=== PATIENT | female | born 1945 | race Caucasian/White ===

== ENCOUNTER 2021-03-14 16:52 | Emergency (ER) | payer MEDICARE, MEDICAID ==
[~2021-03-14 16:52] MED LIST: ACET-2267 PO; ACHD5005 PO; ALBU18HF2 INH; ALPR0.5T7 PO; CEFD300C3 PO; MTP100TCR PO; MULT-1060 PO; OMEP40CA6 PO
--- OUTSIDE RECORDS SUMMARY | 2021-03-14 16:57 | XMS REPORT | Clinical Summary ---
Author Author [facility] Organization [facility] Address Unknown Phone Unavailable Care Team Providers Care [employer]oc[employer] Designer Name Role Phone PCP Unavailable Source Comments [facility] ([facility]) documents do not appear in the [facility] Allergies Not on File Medications Please verify current medications with patient. Not on file Active Problems Not on file Social History Date Tobacco Use Types Packs/Day Years Used Never Assessed Sex Assigned at Date Recorded Not on file Last Filed Vital Signs Not on file Plan of Treatment Health Maintenance Due Date Last Done Comments CT Colonography 1945 Colon cancer: DNA-based 1945 stool test (Cologuard) Sigmoidoscopy 1945 gFOBT or FIT 1945 COVID-19 Vaccine (1) 1959 Colonoscopy 1997 Colorectal Cancer 1997 Screening Mammogram 1997 DXA Scan 2012 Pneumococcal Vaccine: 65+ 2012 Years (1 of 1 - PPSV23) Influenza Vaccine (#1) 2021 HPV Vaccine Aged Out No longer eligible based on patient's age to complete this topic Results Not on filefrom Last 3 Months
--- NOTE | 2021-03-14 17:25 | Diagnostic Imaging Report ---
INDICATION: Cough COMPARISON: 12/18/2020 FINDINGS: Single view of the chest demonstrates clear lungs bilaterally. The heart is prominent but stable. There is no pneumothorax. The osseous structures are normal. IMPRESSION: Negative chest. Dictated by: Dictated on workstation # [id number]
--- NOTE | 2021-03-14 17:33 | ED Cough/URI ---
General Chief Complaint: Respiratory Problems Stated Complaint: COUGH Source: patient Exam Limitations: no limitations History of Present Illness Date Seen by Provider: Mar 14, 2021 Time Seen by Provider: 16:59 Initial Comments 75-year-old female with past medical history of diabetes, hypertension, and potentially COPD but she has not been formally diagnosed. She is a smoker. She has had a cough for roughly 1 week. She went to an urgent care and was prescri bed antibiotic and an inhaler which has been helping. Cough has continued however. Covid test was -1-week ago and her spouse had a negative Covid test yesterday as well with similar symptoms. Cough is mostly dry, no fever, no vomiting, no diarrhea, chest pain, shortness of breath, abdominal pain, or any other concerns. Allergies and Home Medications Allergies Coded Allergies: No Known Drug Allergies (Unverified , 12/18/20) Patient Home Medication List Home Medication List Reviewed: Yes Acetaminophen (Tylenol Extra Strength) 500 Mg Tablet, 500-1,000 MG PO Q8H PRN for PAIN-MILD (1-4), (Reported) Entered as Reported by: NOEMÍ MOY on 12/19/20 1401 Albuterol Sulfate (Ventolin Hfa) 18 Gm Hfa.aer.ad, 2 PUFF INH Q6H PRN for SHORTNESS OF BREATH, (Reported) Entered as Reported by: NOEMÍ MOY on 12/19/20 1401 Alprazolam (Alprazolam) 0.5 Mg Tablet, 1 MG PO HS PRN for ANXIETY/SLEEP, (Reported) Entered as Reported by: NOEMÍ MOY on 12/19/20 1401 Cefdinir (Cefdinir) 300 Mg Capsule, 300 MG PO BID Prescribed by: CAROLANN MATTHEW on 12/19/20 1505 Hydrocodone/Acetaminophen (Hydrocodone-Acetamin 5-325 mg) 1 Each Tablet, 1 EA PO BID PRN for PAIN-MODERATE (5-7), (Reported) Entered as Reported by: NOEMÍ MOY on 12/19/20 1401 Metoprolol Succinate (Metoprolol Succinate) 100 Mg Tab.er.24h, 100 MG PO HS, (Reported) Entered as Reported by: NOEMÍ MOY on 12/19/20 1401 Multivitamin/Iron/Folic Acid (Centrum Women Tablet) 1 Each Tablet, 1 EACH PO DAILY, (Reported) Entered as Reported by: NOEMÍ MOY on 12/19/20 1401 Omeprazole (Omeprazole) 40 Mg Capsule.dr, 40 MG PO DAILY, (Reported) Entered as Reported by: NOEMÍ MOY on 12/19/20 1401 Review of Systems Review of Systems Constitutional: No chills, No fever EENTM: no symptoms reported Respiratory: cough; No short of breath Cardiovascular: No chest pain, No palpitations Gastrointestinal: No abdominal pain, No constipation, No diarrhea, No nausea, No vomiting Genitourinary: No dysuria Musculoskeletal: No back pain Skin: No rash Psychiatric/Neurological: No Symptoms Reported Hematologic/Lymphatic: No Symptoms Reported Immunological/Allergic: no symptoms reported All Other Systems Reviewed Negative Unless Noted: Yes Past Yuyyuhf-Vrebev-Pzwkfj Hx Patient Social History Tobacco Use?: Yes Smoking Status: Unknown if Ever Smoked Use of E-Cig and/or Vaping dev: No Substance use?: No Alcohol Use?: No Pt feels they are or have been: No Past Medical History Surgery/Hospitalization HX: DM, HTN, Hallucination hx, Hyperlipidemia Surgeries: Yes Bladder Surgery Respiratory: No Cardiac: Yes Hypertension Neurological: Yes TIA Genitourinary: Yes Bladder Infection Endocrine: Yes Diabetes, Non-Insulin dep Family Medical History Diabetes, Hypertension Physical Exam Vital Signs - First Documented 03/14/21 16:59 Temp 36.2 Pulse 100 Resp 20 B/P (MAP) 152/75 (100) Pulse Ox 94 O2 Delivery Room Air Capillary Refill : Height: '" Weight: lbs. oz. kg; 27.44 BMI Method: General Appearance: WD/WN, no apparent distress HEENT: PERRL/EOMI, normal ENT inspection, pharynx normal Neck: non-tender, full range of motion, supple, normal inspection Respiratory: chest non-tender, no respiratory distress, no accessory muscle use, wheezing Cardiovascular: regular rate, rhythm, no edema, no murmur Gastrointestinal: normal bowel sounds, non tender, soft; No distended, No guarding, No rebound Extremities: normal range of motion, non-tender, normal inspection, no pedal edema, no calf tenderness, normal capillary refill Neurologic/Psychiatric: no motor/sensory deficits, alert, normal mood/affect Skin: normal color, warm/dry Lymphatic: no adenopathy Progress/Results/Core Measures Suspected Sepsis SIRS Temperature: Pulse: Respiratory Rate: Blood Pressure / Mean: Results/Orders My Orders Orders - ANDI VO MD Coronavirus Sars-Cov-2 So 2019 (03/14/21 17:08) Chest 1 View Ap/Pa Only (03/14/21 17:08) Vital Signs/I&O 03/14/21 16:59 Temp 36.2 Pulse 100 Resp 20 B/P (MAP) 152/75 (100) Pulse Ox 94 O2 Delivery Room Air Capillary Refill : Progress Note : Progress Note 75-year-old female with above history coming in due to cough. ABCs were intact and vitals are stable on presentation. Physical exam with some mild wheezing bilaterally but he is breathing comfortably. We called the pharmacy that she goes to and she has been on doxycycline and has 3 more days of this. She has not been prescribed any type of steroid. Chest x-ray ordered and interpreted by me showing no acute infiltrate or pneumothorax. Offered a Covid test but she is refusing. This is more consistent with likely a COPD exacerbation versus viral infection. Given the strong history of smoking will add a steroid to her current regimen. She was then discharged home in stable condition with strict return precautions Diagnostic Imaging Diagonstic Imaging: Xray Plain Films/CT/US/NM/MRI: chest Comments [facility], [place] NAME: SHELLY COTE [facility] REC#: [id number] PT STATUS: REG ER : 1945 PHYSICIAN: ANDI VO MD ADMIT DATE: 03/14/21/ER FS Draft Date of Exam:03/14/21 CHEST 1 VIEW AP/PA ONLY INDICATION: Cough COMPARISON: 12/18/2020 FINDINGS: Single view of the chest demonstrates clear lungs bilaterally. The heart is prominent but stable. There is no pneumothorax. The osseous structures are normal. IMPRESSION: Negative chest. Dictated on workstation # [id number] Dict: 03/14/21 172 Trans: 03/14/21 172 [facility] [id number] Interpreted by: MANUEL JONES Electronically signed by: Departure Impression Primary Impression: COPD exacerbation Additional Impression: Cough Disposition: 01 HOME, SELF-CARE Condition: Stable Departure-Patient Inst. Decision time for Depature: 18:02 Patient Instructions: COPD Exacerbation, Adult ED Add. Discharge Instructions: You are seen in the emergency department for your cough. Given your smoking history it is possible you have COPD. You are already on an antibiotic called doxycycline. We will add a steroid which she will take for the next 5 days. If you begin feeling more short of breath, have a fever, chest pain, or any other concerns then please come back to the ER. All discharge instructions reviewed with patient and/or family. Voiced understanding. Scripts Prednisone (Prednisone) 20 Mg Tab 40 MG PO DAILY for 5 Days, #10 TAB 0 Refills Prov: ANDI VO MD 03/14/21 ANDI VO MD Mar 14, 2021 17:33
[2021-03-14] MEDS ORDERED: PRD20T PO (18:03)
[2021-03-14 18:05] VITALS: BP 152/75
== END 2021-03-14 18:05 | disposition home or self-care (01) ==
LOC: EDUNIT# 16:52 → ER FS 16:54
DX: J44.1 Chronic obstructive pulmonary disease with (acute) exacerbation (principal); I10 Essential (primary) hypertension; E11.9 Type 2 diabetes mellitus without complications; Z86.73 Personal history of transient ischemic attack (TIA), and cerebral infarction without residual deficits; Z79.899 Other long term (current) drug therapy
CPT/HCPCS: 71045

== ENCOUNTER 2022-01-01 11:03 | Emergency (ER) | payer MEDICARE, MEDICAID ==
[~2022-01-01] VITALS: Ht 157 cm; Wt 64.0 kg
[~2022-01-01 11:03] MED LIST changes: +PRD20T PO
--- NOTE | 2022-01-01 11:25 | ED GU-Female ---
General Chief Complaint: - Reproductive Stated Complaint: UTI Source: patient Exam Limitations: no limitations History of Present Illness Date Seen by Provider: Jan 01, 2022 Time Seen by Provider: 11:06 Initial Comments 76yoF with PMH of DM, HTN, and prior UTI's coming in due to symptoms concerning for a UTI. Symptoms started this morning. She is having burning with urination. She has to self cath three times a day max, usually does it twice a day. Does also urinate some in between caths. With prior UTI's she has had hallucinations so she is not wanting that to happen again. Denies any hallucinations now. Denies any fever, hematuria, abd pain, flank pain, chest pain, SOB, rash, or any other concerns. Allergies and Home Medications Allergies Coded Allergies: No Known Drug Allergies (Unverified , 12/18/20) Patient Home Medication List Home Medication List Reviewed: Yes Acetaminophen (Tylenol Extra Strength) 500 Mg Tablet, 500-1,000 MG PO Q8H PRN for PAIN-MILD (1-4), (Reported) Entered as Reported by: NOEMÍ MOY on 12/19/20 1401 Albuterol Sulfate (Ventolin Hfa) 18 Gm Hfa.aer.ad, 2 PUFF INH Q6H PRN for SHORTNESS OF BREATH, (Reported) Entered as Reported by: NOEMÍ MOY on 12/19/20 1401 Alprazolam (Alprazolam) 0.5 Mg Tablet, 1 MG PO HS PRN for ANXIETY/SLEEP, (Reported) Entered as Reported by: NOEMÍ MOY on 12/19/20 1401 Cefdinir (Cefdinir) 300 Mg Capsule, 300 MG PO BID Prescribed by: CAROLANN MATTHEW on 12/19/20 1505 Hydrocodone/Acetaminophen (Hydrocodone-Acetamin 5-325 mg) 1 Each Tablet, 1 EA PO BID PRN for PAIN-MODERATE (5-7), (Reported) Entered as Reported by: NOEMÍ MOY on 12/19/20 1401 Metoprolol Succinate (Metoprolol Succinate) 100 Mg Tab.er.24h, 100 MG PO HS, (Reported) Entered as Reported by: NOEMÍ MOY on 12/19/20 1401 Multivitamin/Iron/Folic Acid (Centrum Women Tablet) 1 Each Tablet, 1 EACH PO DAILY, (Reported) Entered as Reported by: NOEMÍ MOY on 12/19/20 1401 Omeprazole (Omeprazole) 40 Mg Capsule.dr, 40 MG PO DAILY, (Reported) Entered as Reported by: NOEMÍ MOY on 12/19/20 1401 Prednisone (Prednisone) 20 Mg Tab, 40 MG PO DAILY Prescribed by: ANDI VO on 03/14/21 1803 Review of Systems Review of Systems Constitutional: No fever EENTM: no symptoms reported Respiratory: no symptoms reported Cardiovascular: no symptoms reported Gastrointestinal: no symptoms reported Genitourinary: see HPI Musculoskeletal: no symptoms reported Skin: no symptoms reported Psychiatric/Neurological: No Symptoms Reported Endocrine: No Symptoms Reported Hematologic/Lymphatic: No Symptoms Reported All Other Systemes Reviewed Negative Unless Noted: Yes Past Wrigwtu-Wejeov-Hfrzwg Hx Patient Social History Tobacco Use?: No Past Medical History Surgery/Hospitalization HX: DM, HTN, Hallucination hx, Hyperlipidemia Surgeries: Yes Bladder Surgery Respiratory: No Cardiac: Yes Hypertension Neurological: Yes TIA Genitourinary: Yes Bladder Infection Endocrine: Yes Diabetes, Non-Insulin dep Family Medical History Diabetes, Hypertension Physical Exam Vital Signs Vital Signs - First Documented 01/01/22 11:17 Temp 35.4 Pulse 96 Resp 20 B/P (MAP) 137/76 (96) Pulse Ox 98 O2 Delivery Room Air Capillary Refill : Height, Weight, BMI Height: '" Weight: lbs. oz. kg; 27.44 BMI Method: General Appearance: WD/WN, no apparent distress HEENT: PERRL/EOMI, normal ENT inspection, pharynx normal Neck: non-tender, full range of motion, supple, normal inspection Cardiovascular: regular rate, rhythm, no edema, no murmur Respiratory: chest non-tender, lungs clear, normal breath sounds, no respiratory distress, no accessory muscle use Gastrointestinal: normal bowel sounds, non tender, soft; No distended, No gu arding, No rebound Back: normal inspection, no CVA tenderness Extremities: normal range of motion, non-tender, normal inspection, no pedal edema, no calf tenderness, normal capillary refill Neurologic/Psychiatric: no motor/sensory deficits, alert, normal mood/affect Skin: normal color, warm/dry Lymphatic: no adenopathy Progress/Results/Core Measures Suspected Sepsis SIRS Temperature: Pulse: Respiratory Rate: Blood Pressure / Mean: Results/Orders Lab Results Laboratory Tests Test 01/01/22 11:18 Range/Units Urine Color YELLOW Urine Clarity SL CLOUDY Urine pH 6.0 5-9 Urine Specific [place] 1.015 L 1.016-1.022 Urine Protein TRACE H NEGATIVE Urine Glucose (UA) NEGATIVE NEGATIVE Urine Ketones NEGATIVE NEGATIVE Urine Nitrite NEGATIVE NEGATIVE Urine Bilirubin NEGATIVE NEGATIVE Urine Urobilinogen 0.2 < = 1.0 MG/DL Urine Leukocyte Esterase 3+ H NEGATIVE Urine RBC (Auto) TRACE-I H NEGATIVE Urine RBC 0-2 /HPF Urine WBC >100 H /HPF Urine Squamous Epithelial Cells 5-10 /HPF Urine Crystals NONE /LPF Urine Bacteria LARGE H /HPF Urine Casts NONE /LPF Urine Mucus NEGATIVE /LPF Urine Culture Indicated YES My Orders Orders - ANDI VO MD Ua Culture If Indicated (01/01/22 11:18) Urine Culture (01/01/22 11:18) Vital Signs/I&O 01/01/22 11:17 Temp 35.4 Pulse 96 Resp 20 B/P (MAP) 137/76 (96) Pulse Ox 98 O2 Delivery Room Air Capillary Refill : Progress Note : Progress Note 36-year-old female with above history coming in due to concerns for UTI with dysuria for the past day. ABCs were intact and vitals were stable on presentation. Physical exam reassuring with no focal abnormalities. Urinalysis concerning for infection. I reviewed the patient's prior microbiology report from her urine culture in 2020 and it was pansensitive with E. coli. We will start her on cefdinir. I will have her follow-up with her primary care or back to the ER if things are worsening. Departure Impression Primary Impression: Cystitis Disposition: 01 HOME, SELF-CARE Condition: Stable Departure-Patient Inst. Decision time for Depature: 11:45 Referrals: FREEDOM JEWELL MD (PCP/Family) Primary Care Physician Patient Instructions: Urinary Tract Infection, Adult ED Add. Discharge Instructions: You will take antibiotics twice a day for the next 10 days. If things are worsening then please come back to the ER or call your regular doctor. Scripts Cefdinir (Cefdinir) 300 Mg Capsule 300 MG PO BID for 10 Days, #20 CAP 0 Refills Prov: ANDI VO MD 01/01/22 ANDI VO MD Jan 01, 2022 11:25
[2022-01-01 11:28] LABS: BILIRUBIN,URINE NEGATIVE (NEGATIVE); CLARITY,URINE SL CLOUDY; COLOR,URINE YELLOW; GLUCOSE, URINE (UA) NEGATIVE (NEGATIVE); KETONES,URINE NEGATIVE (NEGATIVE); LEUKOCYTE ESTERASE ,URINE 3+ (NEGATIVE); NITRITE,URINE NEGATIVE (NEGATIVE); PROTEIN,URINE TRACE (NEGATIVE)
[2022-01-01 11:39] LABS: BACTERIA,URINE LARGE /HPF; RBC,URINE 0-2 /HPF; WBC,URINE >100 /HPF
[2022-01-01] MEDS ORDERED: CEFD300C3 PO (11:46)
[2022-01-01] MEDS ORDERED: CEFDINIR 300 MG (OMNICEF) CAP PO ONE (12:00)
[2022-01-01 12:03] VITALS: BP 136/85
== END 2022-01-01 12:03 | disposition home or self-care (01) ==
LOC: EDUNIT# 11:03 → ER 11:04
DX: N30.01 Acute cystitis with hematuria (principal)
CPT/HCPCS: 81000; 87077; 87088; 87186; 99283